=== PATIENT | female | born 1990 | race Caucasian/White ===

== ENCOUNTER 2022-10-21 11:51 | Emergency (ER) | payer BC ==
[~2022-10-21] VITALS: Ht 162.6 cm; Wt 65.8 kg
[2022-10-21 11:59] VITALS: BP_SYST 110
[2022-10-21] MEDS ORDERED: NACL 0.9% 1,000 ML IV ONE (12:15)
[2022-10-21] MEDS ORDERED: KETOROLAC TROMETHAMINE 30 MG VIAL IVP ONE (12:30)
[2022-10-21 12:47] LABS: BILIRUBIN,URINE NEGATIVE (NEGATIVE); BLOOD, URINE NEGATIVE (NEGATIVE); COLOR,URINE YELLOW (YELLOW); GLUCOSE,URINE 3+ (NEGATIVE); KETONES,URINE TRACE (NEGATIVE); LEUKOCYTE ESTERASE ,URINE NEGATIVE (NEGATIVE); NITRITE, URINE NEGATIVE (NEGATIVE); PH,URINE 6.5 (5.0-8.0); PROTEIN URINE NEGATIVE (NEGATIVE); UROBILINOGEN,URINE 0.2 (0.2-1.0)
[2022-10-21 12:50] LABS: BASOPHILS % (AUTO) 0.1 % (0.0-2.0); HEMATOCRIT 39.5 % (36-48); HEMOGLOBIN 13.4 g/dL (12.0-16.0); LYMPHOCYTES # (AUTO) 0.9 K/uL (1.0-5.5); LYMPHOCYTES % (AUTO) 7.7 % (20.5-51.5); MEAN CORPUSCULAR HEMOGLOBIN 33 pg (27-31); MEAN CORPUSCULAR HGB CONC 34 % (32-36); MEAN CORPUSCULAR VOLUME 96 fL (79.0-98.0); MONOCYTES # (AUTO) 0.9 K/uL (0.0-1.0); MONOCYTES % (AUTO) 6.9 % (1.7-9.3); NEUTROPHILS # (AUTO) 10.5 K/uL (1.8-7.7); NEUTROPHILS % (AUTO) 85.3 % (40.0-70.0); PLATELET COUNT (AUTO) 211 K/uL (130-430); RED BLOOD CELL COUNT(AUTO) 4.11 MIL/uL (4.2-6.2); RED CELL DISTRIBUTION WIDTH 12.6 % (9.0-15.0); WHITE BLOOD COUNT (AUTO) 12.3 K/uL (4.8-10.8)
[2022-10-21 12:55] LABS: CALCIUM 8.2 mg/dL (8.4-11.0); CREATININE 0.94 mg/dL (0.55-1.30)
[2022-10-21 12:58] LABS: CLARITY/URINE SLIGHTLY HAZY (CLEAR)
[2022-10-21 13:00] LABS: ALBUMIN 3.4 g/dL (3.4-4.8); TOTAL BILIRUBIN 0.7 mg/dL (0.0-1.0)
[2022-10-21 13:04] LABS: BACTERIA,URINE RARE /HPF (None Seen); RBC,URINE 0-3 /HPF (0-3); WBC,URINE 0-3 /HPF (0-3)
[2022-10-21] MEDS ORDERED: INSULIN REGULAR, HUMAN 10 UNITS/0.1 ML, 3 ML VIAL IVP ONE (13:15)
[2022-10-21] MEDS ORDERED: ONDANSETRON HCL 4 MG/2 ML VIAL IVP ONE (15:00)
[2022-10-21] MEDS ORDERED: MORPHINE 2 MG/ML INJ. SYRINGE IVP ONE (15:00)
[2022-10-21] MEDS ORDERED: DICL75TA5 PO (16:45)
[2022-10-21 17:03] VITALS: BP_SYST 136
== END 2022-10-21 17:04 | disposition home or self-care (01) ==
LOC: SED 11:51
DX: B34.9 Viral infection, unspecified (principal); D25.9 Leiomyoma of uterus, unspecified; R10.2 Pelvic and perineal pain; R10.30 Lower abdominal pain, unspecified; R50.9 Fever, unspecified; R30.0 Dysuria; E10.9 Type 1 diabetes mellitus without complications; Z79.899 Other long term (current) drug therapy
CPT/HCPCS: 99285; 74176; 96374; 96375; 76830; 76857; 96361; 80053; 81000; 82962; 85025; 86403; 36415; 76376; 81025; 87081; 83605; J1885; J2405; J2270; J7030; J1815